=== PATIENT | female | born 1970 | race Caucasian/White ===

== ENCOUNTER 2025-05-22 16:01 | Observation (INO) ==
[2025-05-22 17:03] LABS: MEAN PLATELET VOLUME 8.8 fL (7.4-11.0); RED CELL DISTRIBUTION WIDTH 20.3 % (11.6-16.5)
[2025-05-22 17:21] LABS: COR CA(FOR HYPOALB) 9.2 mg/dL (8.5-10.1); COR NA(FOR HYPERGLY) 143 mmol/L (136-145); CREATININE 0.98 mg/dL (0.55-1.02); eGFR NON BLACK RACES > 60 (>60)
--- NOTE | 2025-05-22 17:39 | DR.GENAD ---
HPI Time Seen Time Seen by Provider: 05/22/25 17:38 PCP Primary Care Physician: Daniele Doll (d/c patient last year) HPI Comment HPI Comment: Patient came in with complaint of headache, feeling fatigued for the last couple of weeks. Patient states is getting worse. Patient states she has had about 2 weeks of heavy vaginal bleeding. Patient does not appear to be very compliant with medications or follow-ups. When asked about burning up if she had a fever she said no that when she exerts herself she gets sweaty. Complaint/Symptoms Chief Complaint:: Pt presents to ED via stretcher, able to walk to treatment room independently, pt in no acute distress. Pt reports last night she started having headache, "burning up", weak, "sometimes I don't have an appetite, sometimes I feel like I could eat a small horse", cough, epigastric pain, intermittent nausea. Self Treatment fo Chief Complaint: hasn't taken any OTC meds d/t "I don't trust that stuff" Has been out of her RX for over one year d/t "I can't afford to pay for a taxi to go to the doctor" COVID-19 Coronavirus risk:travel/contact w/high risk person: No Has patient experienced Coronavirus symptoms: No Source History Provided: Patient and EMS Mode of Arrival Mode of Arrival: EMS Timing Onset of Chief Complaint: 05/20/25 PMH PMH Past Medical History: Yes Past Medical History: Anemia, Asthma, COPD, Diabetes, Dyslipidemia, Hypertension, Hypothyroidism and Sleep Apnea Past Medical History Comment: bipolar, PTSD, RLS Past Surgical History: Yes Surgical History: Tonsillectomy Family History History of Family Medical Conditions: Yes Family Medical History: Diabetes Mellitus and Cancer Social History Does patient currently use any type of tobacco product: No Have you used tobacco products in the last 12 months: No Type of Tobacco Use: None Does any household member use tobacco: No Alcohol Use: None Do you use any recreational Drugs:: No Lives With: Spouse Lives Where: Home Travel Risk Coronavirus risk:travel/contact w/high risk person: No Has patient experienced Coronavirus symptoms: No Infectious screening In the last 2 months have you had wt loss of >10#?: NO Have you had fever, night sweats or hemotysis?: No Have you traveled outside the country in the last 6 months?: No Isolation: Standard ROS Review of Systems Constitutional: See HPI, Weakness and Fatigue; negative Fever Eyes: No Symptoms Reported ENTM: No Symptoms Reported Respiratoy: See HPI and Short of Breath (With exertion); negative Wheezing Cardiovascular: See HPI; negative Chest Pain, Edema, Palpitations or Syncope Gastrointestinal/Abdominal: No Symptoms Reported Genitourinary: See HPI and Bleeding (Vaginal); negative Discharge, Dysuria, Frequency or Pain Neurological: No Symptoms Reported and Headache; negative Numbness, Seizure, Tingling, Weakness (No focalized weakness only generalized), Dizziness, Problems Walking or Speech Problem Musculoskeletal: No Symptoms Reported Integumentary: No Symptoms Reported Hematologic/Lymphatic: No Symptoms Reported Endocrine: No Symptoms Reported Psychiatric: No Symptoms Reported All Other Systems: Reviewed and Negative PE Vital Signs Vitals: Vital Signs Temperature 98.3 F Pulse Rate 94 Respiratory Rate 16 Blood Pressure 119/60 O2 Sat by Pulse Oximetry 97 General Limitations: No Limitations General Appearance: Alert and In No Apparent Distress Head Head Exam: Normal Inspection Eyes Eye exam: Normal Appearance ENT ENT Exam: Normal Exam External Ear Exam: Normal External Inspection TM/Canal Exam: Bilateral: Normal Nose Exam: Normal Nose Exam Mouth Exam: Normal Inspection Throat Exam: Normal Inspection Neck Neck Exam: Normal Inspection Chest Chest Inspection: Normal Inspection Respiratory Respiratory Exam: Normal Lung Sounds Bilat Respiratory Exam: Bilateral: Clear to Auscultation Cardiovascular Cardiovascular Exam: Regular Rate and Normal Rhythm Abdominal Exam Abdominal Exam: Normal Inspection, Normal Bowel Sounds and Soft Extremities Extremities Exam: Normal Inspection Back Back Exam: Normal Inspection Neurologic Neurological Exam: Alert and Oriented X3 Psychiatric Psychiatric Exam: Normal Affect and Normal Mood Skin Skin Exam: Warm, Dry, Intact and Normal Color COURSE Treatment Treatment: After being in ER for over an hour patient states she has had chest pain over the last few days but that it happens regularly on and off. Patient states that she has developed numbness and weakness of her left upper extremity. Teleneuro was consulted immediately. CT of the head resulted negative but teleneuro recommended MRI of the brain tomorrow. Patient found to be severely anemic, likely from vaginal bleeding. CT abdomen and pelvis ordered in preparation for consultation with TOBACCO SWEEPER. Consultation Called: 21:22 Consultation Comments: Discussed case with Dr. Smith and he is agreeable to admission requesting consult for TOBACCO SWEEPER. ROR Labs Reviewed Laboratory Results Reviewed?: Yes 05/22/25 16:34 05/22/25 16:34 Laboratory: WBC 5.5 X10^3/uL (3.6-10.0) 05/22/25 16:34 RBC 3.56 X10^6/uL (3.5-5.4) 05/22/25 16:34 Hgb 7.0 g/dL (12.0-16.0) L* 05/22/25 16:34 Hct 23.3 % (36.0-47.0) L 05/22/25 16:34 MCV 65.3 fL (80.0-100.0) L 05/22/25 16:34 MCH 19.5 pg (27.0-34.0) L 05/22/25 16:34 MCHC 29.9 g/dL (33.0-35.0) L 05/22/25 16:34 RDW 20.3 % (11.6-16.5) H 05/22/25 16:34 Plt Count 201 X10^3/uL (150.0-450.0) 05/22/25 16:34 Plt Count Comment Adequate (ADEQUATE) 05/22/25 16:34 MPV 8.8 fL (7.4-11.0) 05/22/25 16:34 Neut % (Auto) 71.4 % (42.0-75.0) 05/22/25 16:34 Lymph % (Auto) 20.1 % (21.0-51.0) L 05/22/25 16:34 [place] % (Auto) 6.0 % (0.0-13.0) 05/22/25 16:34 Eos % (Auto) 1.9 % (0.9-2.9) 05/22/25 16:34 Baso % (Auto) 0.6 % (0.2-1.0) 05/22/25 16:34 Neut # (Auto) 3.9 x10^3/uL (2.2-4.8) 05/22/25 16:34 Lymph # (Auto) 1.1 X10^3/uL (1.3-2.9) L 05/22/25 16:34 [place] # (Auto) 0.3 x10^3/uL (0.3-0.8) 05/22/25 16:34 Eos # (Auto) 0.1 x10^3/uL (0.0-0.2) 05/22/25 16:34 Baso # (Auto) 0.0 X10^3/uL (0.0-0.1) 05/22/25 16:34 Absolute Nucleated RBC 0.2 /100WBC 05/22/25 16:34 Plt Morphology Comment Normal (NORMAL) 05/22/25 16:34 RBC Morphology Abnormal (NORMAL) A 05/22/25 16:34 Hypochromasia 3+ A 05/22/25 16:34 Anisocytosis 1+ A 05/22/25 16:34 Microcytosis 1+ A 05/22/25 16:34 PT 13.5 SECONDS (11.8-14.3) 05/22/25 16:34 INR Target Range - 05/22/25 16:34 INR 1.02 (0.8-1.3) 05/22/25 16:34 APTT 22.3 SECONDS (22.9-36.5) L 05/22/25 16:34 PTT Comment - 05/22/25 16:34 Fibrinogen 423 mg/dL (239-489) 05/22/25 16:34 Sodium 140 mmol/L (136-145) 05/22/25 16:34 Corrected Sodium 143 mmol/L (136-145) 05/22/25 16:34 Potassium 3.8 mmol/L (3.5-5.1) 05/22/25 16:34 Chloride 104 mmol/L (98-107) 05/22/25 16:34 Carbon Dioxide 32.5 mmol/L (21-32) H 05/22/25 16:34 BUN 11 mg/dL (7-18) 05/22/25 16:34 Creatinine 0.98 mg/dL (0.55-1.02) 05/22/25 16:34 Est GFR (MDRD) Af Amer > 60 (>60) 05/22/25 16:34 Est GFR (MDRD) Non-Af > 60 (>60) 05/22/25 16:34 Glucose 219 mg/dL (65-99) H 05/22/25 16:34 POC Glucose (mg/dL) 159 mg/dL (65-99) H 05/22/25 18:15 Calcium 8.4 mg/dL (8.5-10.1) L 05/22/25 16:34 Corrected Calcium 9.2 mg/dL (8.5-10.1) 05/22/25 16:34 Magnesium 2.0 mg/dL (2.0-2.9) 05/22/25 16:34 Total Bilirubin 0.40 mg/dL (0.2-1.0) 05/22/25 16:34 AST 17 Units/L (15-37) 05/22/25 16:34 ALT 15 Units/L (12-78) 05/22/25 16:34 Alkaline Phosphatase 107 Units/L (46-116) 05/22/25 16:34 Creatine Kinase 35 Units/L (26-192) 05/22/25 16:34 Troponin I High Sens 6.5 ng/L (4.0-60.0) 05/22/25 19:43 Total Protein 7.8 g/dL (6.4-8.2) 05/22/25 16:34 Albumin 3.0 g/dL (3.4-5.0) L 05/22/25 16:34 Globulin 4.8 g/dL (2.5-4.5) H 05/22/25 16:34 Albumin/Globulin Ratio 0.6 Ratio (1.1-2.1) L 05/22/25 16:34 Triglycerides 148 mg/dL (0-150) 05/22/25 16:34 Cholesterol 136 mg/dL (0-200) 05/22/25 16:34 LDL Cholesterol, Calc 78 mg/dL (0-100) 05/22/25 16:34 HDL Cholesterol 28 mg/dL (40-60) L 05/22/25 16:34 Cholesterol/HDL Ratio 4.9 (0.0-5.0) 05/22/25 16:34 Blood Type B POSITIVE 05/22/25 18:27 Antibody Screen Negative 05/22/25 18:27 Other Results Comments: Name: NURYS SCHULTZ : 1970 Sex: F Location: ER Order Number(s): [id number] Procedure(s):BRAIN CT W/O CON Ordering Physician: Jorge A Ivan Primary Care: Nadeen Doll Service Date: 05/22/25 Service Time: 175 EXAM: CT HEAD WITHOUT IV CONTRAST HISTORY: Headaches COMPARISON: None. TECHNIQUE: Axial images were acquired of the head without IV contrast. Coronal and sagittal images were provided. All images were reviewed in a variety of windows and levels. LIMITATIONS: Please note that CT has low sensitivity and accuracy for identifying acute infarction. In addition, there are portions of the brain that are affected by beam hardening artifact which further greatly limits identification of an acute infarct. RADIATION REDUCTION TECHNIQUE: Automated exposure control, Adjustment of the mA and/or kV according to patient size, or iterative reconstruction techniques were used. FINDINGS: There is no evidence of an acute intracranial bleed. There is no evidence of a mass or midline shift. There is no evidence of an extra-axial fluid collection. The easton-white matter differentiation is within normal limits. The visualized bones are unremarkable. The visualized sinuses are clear. The mastoid air cells are well-aerated. IMPRESSION: 1. THERE IS NO EVIDENCE OF AN ACUTE INTRACRANIAL BLEED THIS IS AN ELECTRONICALLY VERIFIED FINAL REPORT 05/22/2025 6:47 PM - Electronically signed by Martin Coy MD Opioid Opioid Risk Tool Age (Alan box if 16-45): No History of Preadolescent Sexual Abuse: No Total: 0 Total Score Risk Category: Low Risk Copyright: Ted GOODRICH predicting aberrant behaviors Discharge Plan Diagnosis Discharge Problem: Vaginal bleeding, Anemia, Left arm weakness Discharge Plan Patient Disposition: 09 ADMITTED INPATIENT Condition: Stable Prescriptions: No Action levothyroxine 50 mcg tablet 20 mcg PO DAILY fluticasone propion-salmeterol 250-50 mcg/dose blister with device 1 ea inhalation BID atorvastatin 20 mg tablet 20 mg PO QDAY lisinopril 20 mg tablet 20 mg PO QDAY famotidine 40 mg tablet 40 mg PO QDAY ropinirole 0.25 mg tablet 0.25 mg PO QDAY trazodone 150 mg tablet 150 mg PO QPM albuterol sulfate 90 mcg/actuation HFA aerosol inhaler 90 mcg inhalation Q6H PRN metformin 500 mg tablet extended release 24 hr 500 mg PO QDAY fluconazole 150 mg tablet 150 mg PO Q3D Qty: 2 0RF Rx Instructions: may repeat second dose 72 hrs after first dose if symptoms persist Health Concerns: Post Hospitalization: new medications and changes needed to prevent readmission or further decline. Pt educated and given instructions on all concerns. Plan of Treatment: Continue with present treatment and follow up plan. Pt is to keep follow up appointment as instructed and take medications as ordered. Orders to Discharge Patient Discharge Orders: Transfer (Routine); Ordered 05/22/25 Ordered By: Jorge A Ivan Follow ups/Referrals Follow ups/Referrals: Nadeen Doll [Primary Care Provider, Emergency Department] - 3 days Instructions Stand Alone Forms: Find Help Web Site, Post Hospital Follow Up Care Print Language: JORDANIAN
[2025-05-22 17:50] LABS: PLATELET MORPHOLOGY COMMENT NORMAL (NORMAL)
--- NOTE | 2025-05-22 17:59 | EKG ---
Test Reason : chest pain Blood Pressure : */* mmHG Vent. Rate : 96 BPM Atrial Rate : 96 BPM P-R Int : 152 ms QRS Dur : 104 ms QT Int : 380 ms P-R-T Axes : 73 36 35 degrees QTc Int : 480 ms Sinus rhythm with premature supraventricular complexes Low voltage QRS Cannot rule out Anterior infarct (cited on or before 21-AUG-2024) Abnormal ECG When compared with ECG of 21-AUG-2024 23:58, premature supraventricular complexes are now present Confirmed by James Barrios MD ([id number]) on 05/23/2025 4:59:26 AM Referred By: Confirmed By: James Barrios MD
[2025-05-22] MEDS: NS 1,000 ML IV 1,000 ML IV SCH (18:07)
[2025-05-22 18:19] LABS: INR 1.02 (0.8-1.3)
[2025-05-22 18:21] LABS: CHOL/HDL RATIO 4.9 (0.0-5.0)
--- NOTE | 2025-05-22 18:50 | CT ---
EXAM: CT HEAD WITHOUT IV CONTRAST HISTORY: Headaches COMPARISON: None. TECHNIQUE: Axial images were acquired of the head without IV contrast. Coronal and sagittal images were provided. All images were reviewed in a variety of windows and levels. LIMITATIONS: Please note that CT has low sensitivity and accuracy for identifying acute infarction. In addition, there are portions of the brain that are affected by beam hardening artifact which further greatly limits identification of an acute infarct. RADIATION REDUCTION TECHNIQUE: Automated exposure control, Adjustment of the mA and/or kV according to patient size, or iterative reconstruction techniques were used. FINDINGS: There is no evidence of an acute intracranial bleed. There is no evidence of a mass or midline shift. There is no evidence of an extra-axial fluid collection. The easton-white matter differentiation is within normal limits. The visualized bones are unremarkable. The visualized sinuses are clear. The mastoid air cells are well-aerated. IMPRESSION: 1. THERE IS NO EVIDENCE OF AN ACUTE INTRACRANIAL BLEED THIS IS AN ELECTRONICALLY VERIFIED FINAL REPORT 05/22/2025 6:47 PM - Electronically signed by Martin Coy MD
--- NOTE | 2025-05-22 18:58 | TELESTROKE ---
[facility] Consult Date of Consult Date of Exam: 05/22/25 Time of Arrival to the ED: 16:02 Allergies Allergies Allergy/AdvReac Type Severity Reaction Status Date / Time cat dander Allergy Verified 05/22/25 16:02 cinnamon Allergy Verified 05/22/25 16:02 sary Allergy Verified 05/22/25 16:02 Iodinated Contrast Media Allergy Verified 05/22/25 16:05 (IVP DYE) mold Allergy Verified 05/22/25 16:02 Vital Signs Vital Signs: Temp Pulse Resp BP Pulse Ox O2 Del Method 05/22/25 16:02 98.3 F 94 H 16 119/60 97 Room Air History of Present Illness History of Present Illness: [facility] Patient Name:Indiana Bazan Date of :1970 Identification Number: Date of Service:05/22/2025 17:59:02 Diagnosis:R20.2 - Paresthesia of skin Impression: The patient is a 55-year-old woman presenting with global weakness, shakiness flushing and bilateral hand tingling. These are relatively nonfocal complaints and do wonder if her significant anemia is playing a role. Stroke seems much less likely. Recommend routine MRI brain w/o, if stroke seen can pursue remainder of cva workup. Hold blood thinners given anemia. Our recommendations are outlined below. Recommendations: Stroke/Telemetry Floor Neuro Checks (Q4) Bedside Swallow Eval DVT Prophylaxis IV Fluids, Normal Saline Head of Bed 30 Degrees Euglycemia and Avoid Hyperthermia (PRN Acetaminophen) Sign Out: Discussed with Emergency Department Provider Advanced Imaging: Advanced Imaging Deferred because: Stroke not suspected with clinical presentation and exam Metrics: Last Known Well: 05/21/2025 22:00:00 Dispatch Time: 05/22/2025 17:59:02 Arrival Time: 05/22/2025 16:02:00 Initial Response Time: 05/22/2025 17:59:02Symptoms: weakness all over bilateral hand tingling headache. Initial patient interaction: 05/22/2025 18:13:13 NIHSS Assessment Completed: 05/22/2025 18:23:00Patient is not a candidate for Thrombolytic. Thrombolytic Medical Decision: 05/22/2025 18:23:00Patient was not deemed candidate for Thrombolytic because of following reasons: LKW outside 4.[address] Head: I personally reviewed all the CT images that were available to me and it showed: no acute changes Primary Provider Notified of Diagnostic Impression and Management Plan on: 05/22/2025 18:57:21 History of Present Illness:Patient is a 55 year old Female. Patient was brought by EMS for symptoms of weakness all over bilateral hand tingling headache. The patient is a 55-year-old woman with a history of morbid obesity, bipolar, restless leg syndrome, PTSD, hypertension, hyperlipidemia, diabetes. She does not take any blood thinners. She states that yesterday evening she developed global weakness and a headache and some shakiness. Then this morning she did not feel any better and felt both hands were tingling left greater then right. Of note, she is very anemic with hemoglobin of 7. She also had anemia back in November and it sounds like suspected source was heavy menses excessive uterine bleeding. She had a colonoscopy shortly before November. Past Medical History: Hypertension Diabetes Mellitus Hyperlipidemia Other PMH: Low thyroid, Bipolar, RLS, PTSD Medications: No Anticoagulant use No Antiplatelet use Reviewed EMR for current medications Allergies: Reviewed Social History: Drug Use: No Family History: There is no family history of premature cerebrovascular disease pertinent to this consultation ROS : 14 Points Review of Systems was performed and was negative except mentioned in HPI. Past Surgical History: There Is No Surgical History Contributory To Todays Visit Examination: BP(119/60),Pulse(94), 1A: Level of Consciousness - Alert; keenly responsive+ 0 1B: Ask Month and Age - Both Questions Right+ 0 1C: Blink Eyes & Squeeze Hands - Performs Both Tasks+ 0 2: Test Horizontal Extraocular Movements - Normal+ 0 3: Test Visual Yu - No Visual Loss+ 0 4: Test Facial Palsy (Use Grimace if Obtunded) - Normal symmetry+ 0 5A: Test Left Arm Motor Drift - No Drift for 10 Seconds+ 0 5B: Test Right Arm Motor Drift - No Drift for 10 Seconds+ 0 6A: Test Left Leg Motor Drift - No Drift for 5 Seconds+ 0 6B: Test Right Leg Motor Drift - No Drift for 5 Seconds+ 0 7: Test Limb Ataxia (FNF/Heel-Flores) - No Ataxia+ 0 8: Test Sensation - Mild-Moderate Loss: Less Sharp/More Dull+ 1 9: Test Language/Aphasia - Normal; No aphasia+ 0 10: Test Dysarthria - Normal+ 0 11: Test Extinction/Inattention - No abnormality+ 0 NIHSS Score:1 NIHSS Free Text :more sensation left leg and Pre-Morbid Modified Gonzales Scale:1 Points = No significant disability despite symptoms; able to carry out all usual duties and activities Spoke with :ED MD This consult was conducted in real time using interactive audio and video technology. Patient was informed of the technology being used for this visit and agreed to proceed. Patient located in hospital and provider located at home/office setting. Patient is being evaluated for possible acute neurologic impairment and high probability of imminent or life-threatening deterioration. I spent total of 45 minutes providing care to this patient, including time for face to face visit via telemedicine, review of medical records, imaging studies and discussion of findings with providers, the patient and/or family. Dr Bethany Castaneda [facility] For Inpatient follow-up with [facility] physician please call [facility] at . As we are not an outpatient service for any post hospital discharge needs please contact the hospital for assistance. If you have any questions for the [facility] physicians or need to reconsult for clinical or diagnostic changes please contact us via [facility] at . Medical Decision Making 05/22/25 16:34 05/22/25 16:34 Labs: Laboratory Results - last 24 hr 05/22/25 05/22/25 05/22/25 16:34 18:15 18:27 WBC 5.5 RBC 3.56 Hgb 7.0 L* Hct 23.3 L MCV 65.3 L MCH 19.5 L MCHC 29.9 L RDW 20.3 H Plt Count 201 Plt Count Comment Adequate MPV 8.8 Neut % (Auto) 71.4 Lymph % (Auto) 20.1 L [place] % (Auto) 6.0 Eos % (Auto) 1.9 Baso % (Auto) 0.6 Neut # (Auto) 3.9 Lymph # (Auto) 1.1 L [place] # (Auto) 0.3 Eos # (Auto) 0.1 Baso # (Auto) 0.0 Absolute Nucleated RBC 0.2 Plt Morphology Comment Normal RBC Morphology Abnormal A Hypochromasia 3+ A Anisocytosis 1+ A Microcytosis 1+ A PT 13.5 INR Target Range - INR 1.02 APTT 22.3 L PTT Comment - Fibrinogen 423 Sodium 140 Corrected Sodium 143 Potassium 3.8 Chloride 104 Carbon Dioxide 32.5 H BUN 11 Creatinine 0.98 Est GFR (MDRD) Af Amer > 60 Est GFR (MDRD) Non-Af > 60 Glucose 219 H POC Glucose (mg/dL) 159 H Calcium 8.4 L Corrected Calcium 9.2 Magnesium 2.0 Total Bilirubin 0.40 AST 17 ALT 15 Alkaline Phosphatase 107 Creatine Kinase 35 Troponin I High Sens 5.5 Total Protein 7.8 Albumin 3.0 L Globulin 4.8 H Albumin/Globulin Ratio 0.6 L Triglycerides 148 Cholesterol 136 LDL Cholesterol, Calc 78 HDL Cholesterol 28 L Cholesterol/HDL Ratio 4.9 Blood Type B POSITIVE B POSITIVE
[2025-05-22] MEDS ORDERED: NS 500 ML IV 500 ML IV ONE ×2 (20:32→22:54)
[2025-05-22 21:24] LABS: BLOOD/HEMOGLOBIN,URINE 5+ (NEGATIVE); LEUKOCYTE ESTERASE ,URINE 1+ (NEGATIVE); NITRITES,URINE NEGATIVE (NEGATIVE)
[2025-05-22 21:29] LABS: APPEARANCE,URINE HAZY (CLEAR)
[2025-05-22 21:41] LABS: SQUAMOUS EPITHELIAL CELL,UR MANY /HPF (NEGATIVE)
[2025-05-22] MEDS: ROCEPHIN VIAL 1 GRAM 1 G in NS 100 ML IV 100 ML IV SCH (21:49)
[2025-05-22] MEDS ORDERED: PROVENTIL NEB TX 0.083% 2.5MG/ 3ML NEB PRN (22:44)
[2025-05-22] MEDS ORDERED: ZOFRAN INJ 4 MG VIAL IVP PRN (22:54)
[2025-05-22] MEDS ORDERED: ULTRAM PO PRN (22:54)
[2025-05-22] MEDS ORDERED: NORCO 5/325 MG TAB PO PRN (22:54)
[2025-05-22] MEDS ORDERED: NovoLIN R (or HumuLIN R) SUBCUT PRN (22:54)
[2025-05-22] MEDS ORDERED: VENTOLIN or PROAIR HFA IN PRN (22:54)
[2025-05-22] MEDS ORDERED: CONSULT PHARMACY - POTASSIUM & MAGNESIUM XX SCH (22:54)
[2025-05-22] MEDS ORDERED: K-RIDER 10 MEQ/100 ML WATER 10 MEQ/100 ML BAG IV SCH (23:30)
--- NOTE | 2025-05-22 23:43 | CT ---
EXAM: CT ABDOMEN AND PELVIS WITHOUT CONTRAST HISTORY: LOW HGB, HEMATURIA ; ANEMIA, ASTHMA, COPD, DM. HTN, SLEEP APNEA COMPARISON: None TECHNIQUE: Axial images were obtained of the abdomen and pelvis without IV contrast. Sagittal and coronal reformatted images were provided. All images were reviewed in a variety of windows and levels. RADIATION REDUCTION TECHNIQUE: Automated exposure control, adjustment of the mA or kV according to patient size, or iterative reconstruction techniques were used. FINDINGS: Please note that lack of IV contrast does limit evaluation of the soft tissues and vascular detail. The visualized lower lung zones are clear. The heart size is within normal limits. There is no evidence of a pericardial effusion. The liver, pancreas, adrenal glands, and kidneys are grossly unremarkable. The gallbladder is grossly unremarkable. The spleen is enlarged measuring 14.7 cm in length. There is no evidence of stones or signs of obstructive uropathy. The stomach, small bowel, and colon are grossly unremarkable. There are no inflammatory changes in the right lower quadrant to suggest secondary signs of acute appendicitis. Normal appendix right lower quadrant. There is no evidence of retroperitoneal or mesenteric lymphadenopathy. The uterus is present. The visualized bones demonstrate degenerative changes. There are no concerning lytic or blastic lesions identified. IMPRESSION: Mild splenomegaly. No acute abdominal or pelvic pathology THIS IS AN ELECTRONICALLY VERIFIED FINAL REPORT 05/22/2025 11:40 PM - Electronically signed by Rohit Melissa MD
[2025-05-23] MEDS ORDERED: VISTARIL PO PRN (00:04)
[2025-05-23] MEDS: TYLENOL 325 MG TAB PO PRN (00:21)
[2025-05-23] MEDS: BENADRYL INJ 50 MG VIAL IVP PRN (00:23)
[2025-05-23 03:52] VITALS: BMI 54.3
[2025-05-23 06:03] LABS: MEAN PLATELET VOLUME 8.9 fL (7.4-11.0); RED CELL DISTRIBUTION WIDTH 20.6 % (11.6-16.5)
[2025-05-23 06:19] LABS: PLATELET MORPHOLOGY COMMENT NORMAL (NORMAL)
[2025-05-23 06:25] LABS: COR CA(FOR HYPOALB) 9.0 mg/dL (8.5-10.1); COR NA(FOR HYPERGLY) 143 mmol/L (136-145); CREATININE 0.92 mg/dL (0.55-1.02); eGFR NON BLACK RACES > 60 (>60)
--- NOTE | 2025-05-23 06:36 | RAD ---
EXAM: Portable chest HISTORY: Total body muscle cramps COMPARISON: 08/21/2024 FINDINGS: Heart size is normal. Dee are normal. Lung garcia are clear. No pleural effusion or pneumothorax identified. Bony thorax is unremarkable. IMPRESSION: No significant abnormality identified THIS IS AN ELECTRONICALLY VERIFIED FINAL REPORT 05/23/2025 6:32 AM - Electronically signed by Manohar Her MD
[2025-05-23 12:09] VITALS: BP 127/65; PULSE 81; RESP 21; TEMP 97.4; O2SAT 97
--- NOTE | 2025-05-23 14:22 | MRI ---
EXAM: BRAIN W/O CON HISTORY: WEAKNESS IN LEFT UPPER EXTREMITY ; COMPARISON: None. TECHNIQUE: Multiplaner, multisequence MRI of the head is performed without IV contrast. FINDINGS: No evidence of restricted diffusion to indicate a recent infarction or acute demyelinating event. No suprasellar lesions. Normal signal of the corpus callosum. Cerebellar tonsils are normal in position. Major flow voids of the anterior and posterior circulation are adequately maintained. Paranasal sinuses and mastoid air cells are predominantly clear. IAC landmarks are symmetric. Cortical brain volume is normal. Ventricular size is normal. 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 There are mild senescent white matter signal changes consisting of patchy subcortical white matter T2 prolongation, and circumferential periventricular white matter T2 prolongation. No susceptibility artifact or hemosiderin deposition is identified. IMPRESSION: No acute intracranial abnormalities Mild, nonspecific senescent white matter signal changes of the supratentorial brain, most often affiliated with microangiopathic degeneration in this age group. Clinical correlation needed, along with routine follow-up. THIS IS AN ELECTRONICALLY VERIFIED FINAL REPORT 05/23/2025 2:19 PM - Electronically signed by Baldemar Pedersen MD
--- NOTE | 2025-05-23 14:26 | DR.SSS ---
SHORT STAY SUMMARY Admission Date Date of Admission: 05/22/25 Discharge Date Discharge Date: 05/23/25 Admission Diagnoses Admission Diagnoses: Acute blood loss anemia due to disordered vaginal bleeding, monoplegia, tachycardia. Discharge Diagnoses Discharge Diagnoses: Acute blood loss anemia causing tachycardia. Disordered uterine bleeding. Chief Complaint Chief Complaint: Weakness. History of Present Illness History of Present Illness: Patient presented to the ER from home due to worsening weakness. Has been bleeding heavily for the last week. Was initially seen by LATIN AMERICAN STUDIES DIRECTOR earlier this year for DU B. She has had intermittent spotting since then. During her time in the ER, commented that her right arm was weak and tingling. Teleneuro consult was obtained along with imaging. They recommended admission for MRI. ROS: 12 point ROS negative septa as noted above. PE: Morbidly obese female in no acute distress. Resting calmly bed. Head NCAT, EOMI, hearing intact conversation. Heart regular rate and rhythm. Lungs are diminished but clear. Belly is soft and nontender with bowel sounds present. No swelling of her extremities. But able to move them all well. CN II through XII are grossly normal. Finger-nose testing normal. Past Medical History Past Medical History: Anemia, Asthma, COPD, Diabetes, Dyslipidemia, Hypertension, Hypothyroidism and Sleep Apnea Past Surgical History Surgical History: Tonsillectomy Allergies Allergies Allergy/AdvReac Type Severity Reaction Status Date / Time cat dander Allergy Verified 05/22/25 16:02 cinnamon Allergy Verified 05/22/25 16:02 sary Allergy Verified 05/22/25 16:02 Iodinated Contrast Media Allergy Verified 05/22/25 16:05 (IVP DYE) mold Allergy Verified 05/22/25 16:02 Medications Home Medications: cat dander Allergy (Verified 05/22/25 16:02) cinnamon Allergy (Verified 05/22/25 16:02) sary Allergy (Verified 05/22/25 16:02) Iodinated Contrast Media (IVP DYE) Allergy (Verified 05/22/25 16:05) mold Allergy (Verified 05/22/25 16:02) Family History Family Medical History: Diabetes Mellitus, Cancer, Heart Failure and Hypert ension Social History Does patient currently use any type of tobacco product: No Have you used tobacco products in the last 12 months: No Type of Tobacco Use: None Does any household member use tobacco: No Alcohol Use: None Drug Use: None Physical Exam Vital Signs: Last Vital Signs Temp 97.7 F 05/23/25 04:00 Pulse 80 05/23/25 04:00 Resp 19 05/23/25 04:00 BP 113/55 05/23/25 04:00 Pulse Ox 95 05/23/25 04:00 O2 Del Method Room Air 05/23/25 04:00 O2 Flow Rate 2 05/22/25 22:37 FiO2 28 05/22/25 22:37 Labs Labs: Laboratory Last Values WBC 5.5 X10^3/uL (3.6-10.0) 05/23/25 05:50 RBC 4.27 X10^6/uL (3.5-5.4) 05/23/25 05:50 Hgb 8.8 g/dL (12.0-16.0) L 05/23/25 05:50 Hct 28.5 % (36.0-47.0) L 05/23/25 05:50 MCV 66.7 fL (80.0-100.0) L 05/23/25 05:50 MCH 20.6 pg (27.0-34.0) L 05/23/25 05:50 MCHC 30.8 g/dL (33.0-35.0) L 05/23/25 05:50 RDW 20.6 % (11.6-16.5) H 05/23/25 05:50 Plt Count 197 X10^3/uL (150.0-450.0) 05/23/25 05:50 Plt Count Comment Adequate (ADEQUATE) 05/23/25 05:50 MPV 8.9 fL (7.4-11.0) 05/23/25 05:50 Neut % (Auto) 63.8 % (42.0-75.0) 05/23/25 05:50 Lymph % (Auto) 25.8 % (21.0-51.0) 05/23/25 05:50 [place] % (Auto) 6.4 % (0.0-13.0) 05/23/25 05:50 Eos % (Auto) 3.4 % (0.9-2.9) H 05/23/25 05:50 Baso % (Auto) 0.6 % (0.2-1.0) 05/23/25 05:50 Neut # (Auto) 3.5 x10^3/uL (2.2-4.8) 05/23/25 05:50 Lymph # (Auto) 1.4 X10^3/uL (1.3-2.9) 05/23/25 05:50 [place] # (Auto) 0.4 x10^3/uL (0.3-0.8) 05/23/25 05:50 Eos # (Auto) 0.2 x10^3/uL (0.0-0.2) 05/23/25 05:50 Baso # (Auto) 0.0 X10^3/uL (0.0-0.1) 05/23/25 05:50 Absolute Nucleated RBC 0.5 /100WBC 05/23/25 05:50 Plt Morphology Comment Normal (NORMAL) 05/23/25 05:50 RBC Morphology Abnormal (NORMAL) A 05/23/25 05:50 Hypochromasia 1+ A 05/23/25 05:50 Anisocytosis 1+ A 05/23/25 05:50 Microcytosis 1+ A 05/23/25 05:50 PT 13.5 SECONDS (11.8-14.3) 05/22/25 16:34 INR Target Range - 05/22/25 16:34 INR 1.02 (0.8-1.3) 05/22/25 16:34 APTT 22.3 SECONDS (22.9-36.5) L 05/22/25 16:34 PTT Comment - 05/22/25 16:34 Fibrinogen 423 mg/dL (239-489) 05/22/25 16:34 Sodium 142 mmol/L (136-145) 05/23/25 05:50 Corrected Sodium 143 mmol/L (136-145) 05/23/25 05:50 Potassium 3.8 mmol/L (3.5-5.1) 05/23/25 05:50 Chloride 106 mmol/L (98-107) 05/23/25 05:50 Carbon Dioxide 30.0 mmol/L (21-32) 05/23/25 05:50 BUN 10 mg/dL (7-18) 05/23/25 05:50 Creatinine 0.92 mg/dL (0.55-1.02) 05/23/25 05:50 Est GFR (MDRD) Af Amer > 60 (>60) 05/23/25 05:50 Est GFR (MDRD) Non-Af > 60 (>60) 05/23/25 05:50 Glucose 122 mg/dL (65-99) H 05/23/25 05:50 POC Glucose (mg/dL) 116 mg/dL (65-99) H 05/23/25 05:21 Calcium 8.3 mg/dL (8.5-10.1) L 05/23/25 05:50 Corrected Calcium 9.0 mg/dL (8.5-10.1) 05/23/25 05:50 Magnesium 2.0 mg/dL (2.0-2.9) 05/22/25 16:34 Total Bilirubin 0.90 mg/dL (0.2-1.0) 05/23/25 05:50 AST 17 Units/L (15-37) 05/23/25 05:50 ALT 15 Units/L (12-78) 05/23/25 05:50 Alkaline Phosphatase 105 Units/L (46-116) 05/23/25 05:50 Creatine Kinase 35 Units/L (26-192) 05/22/25 16:34 Troponin I High Sens 6.5 ng/L (4.0-60.0) 05/22/25 19:43 Total Protein 8.0 g/dL (6.4-8.2) 05/23/25 05:50 Albumin 3.1 g/dL (3.4-5.0) L 05/23/25 05:50 Globulin 4.9 g/dL (2.5-4.5) H 05/23/25 05:50 Albumin/Globulin Ratio 0.6 Ratio (1.1-2.1) L 05/23/25 05:50 Triglycerides 148 mg/dL (0-150) 05/22/25 16:34 Cholesterol 136 mg/dL (0-200) 05/22/25 16:34 LDL Cholesterol, Calc 78 mg/dL (0-100) 05/22/25 16:34 HDL Cholesterol 28 mg/dL (40-60) L 05/22/25 16:34 Cholesterol/HDL Ratio 4.9 (0.0-5.0) 05/22/25 16:34 Specimen Type Clean catch urine 05/22/25 20:56 Urine Color Shr[place]ha (YELLOW) 05/22/25 20:56 Urine Appearance Hazy (CLEAR) 05/22/25 20:56 Urine pH 6.0 (5.0 - 8.0) 05/22/25 20:56 Ur Specific [place] 1.020 (1.000-1.030) 05/22/25 20:56 Urine Protein 2+ (NEGATIVE) 05/22/25 20:56 Urine Glucose (UA) Negative (NEGATIVE) 05/22/25 20:56 Urine Ketones Negative (NEGATIVE) 05/22/25 20:56 Urine Blood 5+ (NEGATIVE) 05/22/25 20:56 Urine Nitrite Negative (NEGATIVE) 05/22/25 20:56 Urine Bilirubin Negative (NEGATIVE) 05/22/25 20:56 Urine Urobilinogen Normal (NORMAL) 05/22/25 20:56 Ur Leukocyte Esterase 1+ (NEGATIVE) 05/22/25 20:56 Urine RBC Tntc /HPF (0-3) A 05/22/25 20:56 Urine WBC 5-10 /HPF (0-5) A 05/22/25 20:56 Ur Squamous Epith Cells Many /HPF (NEGATIVE) 05/22/25 20:56 Urine Bacteria Negative /HPF (NEGATIVE) 05/22/25 20:56 Ur Culture Indicated? No/not indicated 05/22/25 20:56 Blood Type B POSITIVE 05/22/25 18:27 Antibody Screen Negative 05/22/25 18:27 Crossmatch See Detail 05/22/25 18:27 Assessment/Plan (1) Left arm weakness: (2) Anemia: (3) Diabetes mellitus: (4) Vaginal bleeding: (5) Morbid obesity: Hospital Course Hospital Course: Patient was admitted and transfused PRBCs. LAT[employer] STUDIES DIRECTOR consulted and plans on outpatient definitive treatment. She was given Provera to go home with to use if she continue to have bleeding. Monoplegia resolved overnight. MRI was obtained with report still pending. Neuroexam was benign. After discussion with patient, she agrees to follow-up with [employer] STUDIES DIRECTOR and wants to be discharged home. Will continue current medications with addition of Provera as needed for the next week. Tingling was thought to be secondary to tachycardia, anemia, and anxiety over health. She needs to have follow-up with a new PCP locally. Discharge Medications Discharge Medications: Prescriptions: Discharge Plan Discharge Plan Patient Disposition: 01 HOME, SELF-CARE Condition: Stable Health Concerns: Post Hospitalization: new medications and changes needed to prevent readmission or further decline. Pt educated and given instructions on all concerns. Care Plan Goals: Problem: Fluid Volume Deficit Goal: Maintain/Improved Adequate hydration. Instructions: Follow provided instructions. Follow up with primary physician as directed. Contact primary care physician or report to the closest Emergency Room if condition worsens. Plan of Treatment: Continue with present treatment and follow up plan. Pt is to keep follow up appointment as instructed and take medications as ordered. Prescriptions: New medroxyprogesterone [Provera] 10 mg Tablet 10 mg PO BID Qty: 14 0RF Continued levothyroxine 50 mcg tablet 20 mcg PO DAILY fluticasone propion-salmeterol 250-50 mcg/dose blister with device 1 ea inhalation BID atorvastatin 20 mg tablet 20 mg PO QDAY lisinopril 20 mg tablet 20 mg PO QDAY famotidine 40 mg tablet 40 mg PO QDAY ropinirole 0.25 mg tablet 0.25 mg PO QDAY trazodone 150 mg tablet 150 mg PO QPM albuterol sulfate 90 mcg/actuation HFA aerosol inhaler 90 mcg inhalation Q6H PRN metformin 500 mg tablet extended release 24 hr 500 mg PO QDAY fluconazole 150 mg tablet 150 mg PO Q3D Qty: 2 0RF Rx Instructions: may repeat second dose 72 hrs after first dose if symptoms persist Orders to Discharge Patient Discharge Orders: Discharge (Routine); Ordered 05/23/25 Ordered By: Kyle Smith Follow ups/Referrals Follow ups/Referrals: JASVIR YOST [STAFF PHYSICIAN, [facility]Gynecology] - 1 WEEK Referral Note: Call office and schedule a follow up Nadeen Doll [Primary Care Provider, Emergency Department] - 1 WEEK Referral Note: Call office and schedule follow up for next week. Instructions Instructions: Anemia, Weakness: What to Know, [id number], Abnormal Uterine Bleeding, [id number] Stand Alone Forms: Find Help Web Site, Post Hospital Follow Up Care Print Language: SAMI
[2025-05-23] MEDS ORDERED: SNACK - Diabetic Appropriate PO SCH (20:00)
== END 2025-05-23 14:25 | disposition home or self-care (01) ==
LOC: ER 16:01 → MED/SURG 16:01
PROVIDERS: ADMIT Family Medicine; ATTEND Family Medicine
DX: F43.10 Post-traumatic stress disorder, unspecified; D50.0 Iron deficiency anemia secondary to blood loss (chronic); I10 Essential (primary) hypertension; R53.1 Weakness; R00.0 Tachycardia, unspecified; R94.31 Abnormal electrocardiogram [ECG] [EKG]; R07.89 Other chest pain; Z59.86 Financial insecurity; E83.51 Hypocalcemia; F31.89 Other bipolar disorder; R51.9 Headache, unspecified; R06.02 Shortness of breath; N92.5 Other specified irregular menstruation; E11.65 Type 2 diabetes mellitus with hyperglycemia; J44.9 Chronic obstructive pulmonary disease, unspecified; Z68.43 Body mass index [BMI] 50.0-59.9, adult; E66.01 Morbid (severe) obesity due to excess calories; R25.2 Cramp and spasm; Z91.141 Patient's other noncompliance with medication regimen due to financial hardship; R79.1 Abnormal coagulation profile; Z60.8 Other problems related to social environment; R20.2 Paresthesia of skin; G25.81 Restless legs syndrome; Z65.8 Other specified problems related to psychosocial circumstances; E03.8 Other specified hypothyroidism

== ENCOUNTER 2025-07-22 17:23 | Observation (INO) ==
--- NOTE | 2025-07-22 17:34 | DR.VAGB ---
HPI Time Seen Time Seen by Provider: 07/22/25 17:32 Complaint Chief Complaint:: To ER from home via EMS for vaginal bleeding. Patient has a history of excessive vaginal bleeding with mensus. Has been worked up previously for same well-known to ER staff. Patient has failed follow-up with SEGMENTAL PAVING SUPERVISOR, PCP, or outpatient therapy with prescriptions because she says they cannot afford them. Patient has a history of diabetes. Patient does not complain of any pain but has had bleeding per her menstrual cycle which she wanted to be checked for anemia. PMH PMH Past Medical History: Anemia, Asthma, COPD, Diabetes, Dyslipidemia, Hypertension, Hypothyroidism and Sleep Apnea Past Surgical History: Yes Surgical History: Tonsillectomy Family History Family Medical History: Diabetes Mellitus, Cancer, Heart Failure and Hypertension Social History Do you use any recreational Drugs:: No ROS Review of Systems Constitutional: No Symptoms Reported Eyes: No Symptoms Reported ENTM: No Symptoms Reported Respiratoy: No Symptoms Reported Cardiovascular: No Symptoms Reported Gastrointestinal/Abdominal: No Symptoms Reported Genitourinary: See HPI and Bleeding Neurological: See HPI and Headache Musculoskeletal: No Symptoms Reported Integumentary: No Symptoms Reported Hematologic/Lymphatic: No Symptoms Reported Endocrine: No Symptoms Reported Psychiatric: No Symptoms Reported All Other Systems: Reviewed and Negative PE Vital Signs Vitals: Vital Signs Temperature 98.2 F Pulse Rate [Standing] 109 Pulse Rate [Sitting] 112 Pulse Rate [Lying] 121 Pulse Rate 123 Pulse Rate 122 Pulse Rate 88 Pulse Rate 89 Pulse Rate 89 Pulse Rate 91 Pulse Rate 92 Pulse Rate 95 Pulse Rate 98 Pulse Rate 100 Pulse Rate 102 Respiratory Rate 20 Blood Pressure [Standing] 107/58 Blood Pressure [Sitting] 124/57 Blood Pressure [Lying] 131/63 Blood Pressure 131/63 Blood Pressure 149/72 O2 Sat by Pulse Oximetry 99 O2 Sat by Pulse Oximetry 100 O2 Sat by Pulse Oximetry 95 O2 Sat by Pulse Oximetry 98 O2 Sat by Pulse Oximetry 96 O2 Sat by Pulse Oximetry 94 O2 Sat by Pulse Oximetry 93 O2 Sat by Pulse Oximetry 96 O2 Sat by Pulse Oximetry 95 O2 Sat by Pulse Oximetry 97 O2 Sat by Pulse Oximetry 97 General Limitations: No Limitations General Appearance: Alert and In No Apparent Distress (Disheveled) Head Head Exam: Normal Inspection Eyes Eye exam: Normal Appearance ENT ENT Exam: Normal Exam Neck Neck Exam: Normal Inspection Chest Chest Inspection: Normal Inspection Respiratory Respiratory Exam: Normal Lung Sounds Bilat Respiratory Exam: Bilateral: Clear to Auscultation Cardiovascular Cardiovascular Exam: Regular Rate and Normal Rhythm Abdominal Exam Abdominal Exam: Normal Inspection, Normal Bowel Sounds and Soft Rectal Rectal Exam: Deferred Genitourinary External Exam: Female: Deferred : Speculum Exam (Female): Deferred : Bimanual Exam (female): Deferred Extremities Extremities Exam: Normal Inspection Back Back Exam: Normal Inspection Neurologic Neurological Exam: Alert and Oriented X3 Skin Skin Exam: Warm, Dry, Intact and Normal Color COURSE Treatment Treatment: Discussed with patient risks benefits options. Discussed possible admission She does express difficulty with primary care and medications due to finances. After detailed discussion patient Consents to admission. [facility] Labs Reviewed 07/22/25 17:50 07/22/25 17:50 Laboratory: WBC 6.4 X10^3/uL (3.6-10.0) 07/22/25 17:50 RBC 4.27 X10^6/uL (3.5-5.4) 07/22/25 17:50 Hgb 7.9 g/dL (12.0-16.0) L 07/22/25 17:50 Hct 26.3 % (36.0-47.0) L 07/22/25 17:50 MCV 61.7 fL (80.0-100.0) L 07/22/25 17:50 MCH 18.5 pg (27.0-34.0) L 07/22/25 17:50 MCHC 29.9 g/dL (33.0-35.0) L 07/22/25 17:50 RDW 19.8 % (11.6-16.5) H 07/22/25 17:50 Plt Count 195 X10^3/uL (150.0-450.0) 07/22/25 17:50 Plt Count Comment Adequate (ADEQUATE) 07/22/25 17:50 MPV 8.6 fL (7.4-11.0) 07/22/25 17:50 Neut % (Auto) 75.1 % (42.0-75.0) H 07/22/25 17:50 Lymph % (Auto) 17.6 % (21.0-51.0) L 07/22/25 17:50 [place] % (Auto) 5.8 % (0.0-13.0) 07/22/25 17:50 Eos % (Auto) 0.6 % (0.9-2.9) L 07/22/25 17:50 Baso % (Auto) 0.9 % (0.2-1.0) 07/22/25 17:50 Neut # (Auto) 4.8 x10^3/uL (2.2-4.8) 07/22/25 17:50 Lymph # (Auto) 1.1 X10^3/uL (1.3-2.9) L 07/22/25 17:50 [place] # (Auto) 0.4 x10^3/uL (0.3-0.8) 07/22/25 17:50 Eos # (Auto) 0.0 x10^3/uL (0.0-0.2) 07/22/25 17:50 Baso # (Auto) 0.1 X10^3/uL (0.0-0.1) 07/22/25 17:50 Absolute Nucleated RBC 0.2 /100WBC 07/22/25 17:50 Plt Morphology Comment Normal (NORMAL) 07/22/25 17:50 RBC Morphology Abnormal (NORMAL) A 07/22/25 17:50 Hypochromasia 3+ A 07/22/25 17:50 Anisocytosis Slight A 07/22/25 17:50 Microcytosis 2+ A 07/22/25 17:50 Sodium 138 mmol/L (136-145) 07/22/25 17:50 Corrected Sodium 140 mmol/L (136-145) 07/22/25 17:50 Potassium 4.0 mmol/L (3.5-5.1) 07/22/25 17:50 Chloride 102 mmol/L (98-107) 07/22/25 17:50 Carbon Dioxide 27.8 mmol/L (21-32) 07/22/25 17:50 BUN 17 mg/dL (7-18) 07/22/25 17:50 Creatinine 0.96 mg/dL (0.55-1.02) 07/22/25 17:50 Est GFR (MDRD) Af Amer > 60 (>60) 07/22/25 17:50 Est GFR (MDRD) Non-Af > 60 (>60) 07/22/25 17:50 Glucose 186 mg/dL (65-99) H 07/22/25 17:50 Calcium 8.5 mg/dL (8.5-10.1) 07/22/25 17:50 Corrected Calcium 9.4 mg/dL (8.5-10.1) 07/22/25 17:50 Total Bilirubin 0.50 mg/dL (0.2-1.0) 07/22/25 17:50 AST 24 Units/L (15-37) 07/22/25 17:50 ALT 22 Units/L (12-78) 07/22/25 17:50 Alkaline Phosphatase 116 Units/L (46-116) 07/22/25 17:50 Total Protein 7.8 g/dL (6.4-8.2) 07/22/25 17:50 Albumin 2.9 g/dL (3.4-5.0) L 07/22/25 17:50 Globulin 4.9 g/dL (2.5-4.5) H 07/22/25 17:50 Albumin/Globulin Ratio 0.6 Ratio (1.1-2.1) L 07/22/25 17:50 Specimen Type Clean catch urine 07/22/25 19:37 Urine Color Brown (YELLOW) 07/22/25 19:37 Urine Appearance Cloudy (CLEAR) 07/22/25 19:37 Urine pH 5.0 (5.0 - 8.0) 07/22/25 19:37 Ur Specific [place] 1.030 (1.000-1.030) 07/22/25 19:37 Urine Protein 2+ (NEGATIVE) 07/22/25 19:37 Urine Glucose (UA) Negative (NEGATIVE) 07/22/25 19:37 Urine Ketones Negative (NEGATIVE) 07/22/25 19:37 Urine Blood 5+ (NEGATIVE) 07/22/25 19:37 Urine Nitrite Negative (NEGATIVE) 07/22/25 19:37 Urine Bilirubin Negative (NEGATIVE) 07/22/25 19:37 Urine Urobilinogen Normal (NORMAL) 07/22/25 19:37 Ur Leukocyte Esterase 1+ (NEGATIVE) 07/22/25 19:37 Urine Test Negative <10 mIU/mL 07/22/25 19:37 Opioid Opioid Risk Tool Age (Alan box if 16-45): No History of Preadolescent Sexual Abuse: No Total: 0 Total Score Risk Category: Low Risk Copyright: Ted GOODRICH predicting aberrant behaviors Discharge Plan Diagnosis Discharge Problem: Vaginal bleeding, Orthostatic hypotension, Anemia Discharge Plan Patient Disposition: 09 ADMITTED INPATIENT Condition: Stable Prescriptions: New nitrofurantoin monohyd/m-cryst [Macrobid] 100 mg capsule 100 mg PO Q12H 7 Days Qty: 14 0RF Rx Instructions: must administer with a meal/food No Action levothyroxine 50 mcg tablet 20 mcg PO DAILY fluticasone propion-salmeterol 250-50 mcg/dose blister with device 1 ea inhalation BID atorvastatin 20 mg tablet 20 mg PO QDAY lisinopril 20 mg tablet 20 mg PO QDAY famotidine 40 mg tablet 40 mg PO QDAY ropinirole 0.25 mg tablet 0.25 mg PO QDAY trazodone 150 mg tablet 150 mg PO QPM albuterol sulfate 90 mcg/actuation HFA aerosol inhaler 90 mcg inhalation Q6H PRN metformin 500 mg tablet extended release 24 hr 500 mg PO QDAY medroxyprogesterone [Provera] 10 mg Tablet 10 mg PO BID Qty: 14 0RF fluconazole 150 mg tablet 150 mg PO Q3D Qty: 2 0RF Rx Instructions: may repeat second dose 72 hrs after first dose if symptoms persist Health Concerns: Post Hospitalization: new medications and changes needed to prevent readmission or further decline. Pt educated and given instructions on all concerns. Plan of Treatment: Continue with present treatment and follow up plan. Pt is to keep follow up appointment as instructed and take medications as ordered. Orders to Discharge Patient Discharge Orders: Discharge (Routine); Ordered 07/22/25 Ordered By: Manohar Saldana Follow ups/Referrals Follow ups/Referrals: [facility],None [Primary Care Provider] - 3 days Instructions Instructions: Urinary Tract Infection, Female Activity Restrictions/Additional Instructions: Observation follow-up primary care follow-up [employer]ER. Return to ER acute symptoms. Take prescribed medications. Return to ER acute symptoms Print Language: GREENLAND[place]
[2025-07-22 17:42] VITALS: BMI 49.2
[2025-07-22 17:58] LABS: MEAN PLATELET VOLUME 8.6 fL (7.4-11.0); RED CELL DISTRIBUTION WIDTH 19.8 % (11.6-16.5)
[2025-07-22 18:09] LABS: COR CA(FOR HYPOALB) 9.4 mg/dL (8.5-10.1); COR NA(FOR HYPERGLY) 140 mmol/L (136-145); CREATININE 0.96 mg/dL (0.55-1.02); eGFR NON BLACK RACES > 60 (>60)
[2025-07-22 18:15] LABS: PLATELET MORPHOLOGY COMMENT NORMAL (NORMAL)
[2025-07-22 19:46] LABS: BLOOD/HEMOGLOBIN,URINE 5+ (NEGATIVE); LEUKOCYTE ESTERASE ,URINE 1+ (NEGATIVE); NITRITES,URINE NEGATIVE (NEGATIVE)
[2025-07-22 19:49] LABS: APPEARANCE,URINE CLOUDY (CLEAR)
[2025-07-22 20:01] LABS: SQUAMOUS EPITHELIAL CELL,UR MODERATE /HPF (NEGATIVE)
[2025-07-22 20:20] LABS: INR 1.04 (0.8-1.3)
[2025-07-22] MEDS ORDERED: ULTRAM PO PRN (21:34)
[2025-07-22] MEDS ORDERED: VENTOLIN or PROAIR HFA IN PRN (21:34)
[2025-07-22] MEDS ORDERED: PROVENTIL NEB TX 0.083% 2.5MG/ 3ML NEB PRN (22:01)
[2025-07-22] MEDS: TYLENOL 325 MG TAB PO PRN (23:17)
[2025-07-23] MEDS: CONSULT PHARMACY - POTASSIUM & MAGNESIUM XX SCH ×2 (00:44→06:02)
[2025-07-23 05:10] LABS: MEAN PLATELET VOLUME 8.8 fL (7.4-11.0); RED CELL DISTRIBUTION WIDTH 19.6 % (11.6-16.5)
[2025-07-23 05:25] LABS: COR CA(FOR HYPOALB) 9.4 mg/dL (8.5-10.1); COR NA(FOR HYPERGLY) 142 mmol/L (136-145); CREATININE 0.97 mg/dL (0.55-1.02); eGFR NON BLACK RACES > 60 (>60)
[2025-07-23 05:37] LABS: PLATELET MORPHOLOGY COMMENT NORMAL (NORMAL)
[2025-07-23] MEDS: K-DUR TAB 20 MEQ PO ONE (08:36)
[2025-07-23] MEDS: GLUCOPHAGE XR 24-HR PO SCH (08:36)
[2025-07-23] MEDS: ZESTRIL TAB 20 MG PO SCH (08:36)
[2025-07-23] MEDS: LIPITOR TAB 20 MG PO SCH (08:37)
[2025-07-23] MEDS: PATIENT'S HOME MEDICATION PO SCH (08:42)
[2025-07-23] MEDS: ZESTRIL TAB 20 MG ONE (08:42)
[2025-07-23 09:01] VITALS: TEMP 98.7
[2025-07-23] MEDS ORDERED: PHARMACY CONSULT XX SCH (10:00)
[2025-07-23] MEDS: INJECTAFER 750 MG in NS 250 ML IV 250 ML IV NR (11:26)
[2025-07-23 12:33] VITALS: BP 128/61; PULSE 74; RESP 20; O2SAT 98
--- NOTE | 2025-07-25 13:07 | DR.SSS ---
SHORT STAY SUMMARY Admission Date Date of Admission: 07/22/25 Discharge Date Discharge Date: 07/23/25 Admission Diagnoses Admission Diagnoses: Symptomatic anemia Generalized weakness Vaginal bleeding Discharge Diagnoses Discharge Diagnoses: Symptomatic anemia Iron deficiency anemia Generalized weakness Noncompliance Chief Complaint Chief Complaint: Generalized weakness, vaginal bleeding History of Present Illness History of Present Illness: Patient is a 55-year-old female with a past medical history of anemia, COPD, hypertension presented with generalized weakness and vaginal bleeding. She has a history of recurrent ER visits for anemia. ER workup included labs which showed hemoglobin 7.9. She did have low iron. All other workup was negative. She was admitted overnight for observation. She has been referred to PCP and [facility] in the past but failed to keep appointments due to financial reasons. She also never picked up her medication from last visit Medroxyprogesterone that was sent to the pharmacy. Past Medical History Past Medical History: Anemia, Asthma, COPD, Diabetes, Dyslipidemia, Hypertension, Hypothyroidism and Sleep Apnea Past Surgical History Surgical History: Tonsillectomy Allergies Allergies Allergy/AdvReac Type Severity Reaction Status Date / Time cat dander Allergy Verified 07/25/25 10:05 cinnamon Allergy Verified 07/25/25 10:05 sary Allergy Verified 07/25/25 10:05 Iodinated Contrast Media Allergy Verified 07/25/25 10:05 (IVP DYE) mold Allergy Verified 07/25/25 10:05 Medications Home Medications: cat dander Allergy (Verified 05/22/25 16:02) cinnamon Allergy (Verified 05/22/25 16:02) sary Allergy (Verified 05/22/25 16:02) Iodinated Contrast Media (IVP DYE) Allergy (Verified 05/22/25 16:05) mold Allergy (Verified 05/22/25 16:02) CONTINUE taking the following medications NK 07/22/25 [History] Family History Family Medical History: Diabetes Mellitus, Cancer, Heart Failure and Hypertension Social History Does patient currently use any type of tobacco product: No Have you used tobacco products in the last 12 months: No Type of Tobacco Use: None Does any household member use tobacco: No Alcohol Use: None Drug Use: None Review of Systems Constitutional: Weakness Eyes: No Symptoms Reported ENT: No Symptoms Reported Respiratory: Shortness of Breath Cardiovascular: No Symptoms Reported Gastrointestinal: No Symptoms Reported Genitourinary: No Symptoms Reported Musculoskeletal: No Symptoms Reported Skin: No Symptoms Reported Neurological: No Symptoms Reported Physical Exam Vital Signs: Last Vital Signs Temp 98.7 F 07/23/25 08:00 Pulse 93 H 07/23/25 08:00 Resp 19 07/23/25 08:00 BP 134/69 07/23/25 08:00 Pulse Ox 100 07/23/25 08:00 O2 Del Method Nasal Cannula 07/23/25 09:55 O2 Flow Rate 2 07/23/25 09:55 FiO2 28 07/23/25 09:55 Oriented: Normal Respiratory: Clear Throughout Cardiovascular: Normal Auscultation: Bowel Sounds: Normal Palpation: Normal Tenderness: Normal Skin: Normal Musculoskeletal: Normal Psychiatric: Normal Mood Description: Calm Affect: Normal Speech Pattern: Clear and Appropriate Labs Labs: Laboratory Last Values WBC 8.8 X10^3/uL (3.6-10.0) 07/23/25 04:05 RBC 4.30 X10^6/uL (3.5-5.4) 07/23/25 04:05 Hgb 8.0 g/dL (12.0-16.0) L 07/23/25 04:05 Hct 26.6 % (36.0-47.0) L 07/23/25 04:05 MCV 61.8 fL (80.0-100.0) L 07/23/25 04:05 MCH 18.6 pg (27.0-34.0) L 07/23/25 04:05 MCHC 30.0 g/dL (33.0-35.0) L 07/23/25 04:05 RDW 19.6 % (11.6-16.5) H 07/23/25 04:05 Plt Count 258 X10^3/uL (150.0-450.0) 07/23/25 04:05 Plt Count Comment Adequate (ADEQUATE) 07/23/25 04:05 MPV 8.8 fL (7.4-11.0) 07/23/25 04:05 Neut % (Auto) 62.4 % (42.0-75.0) 07/23/25 04:05 Lymph % (Auto) 30.6 % (21.0-51.0) 07/23/25 04:05 [place] % (Auto) 5.7 % (0.0-13.0) 07/23/25 04:05 Eos % (Auto) 0.6 % (0.9-2.9) L 07/23/25 04:05 Baso % (Auto) 0.7 % (0.2-1.0) 07/23/25 04:05 Neut # (Auto) 5.5 x10^3/uL (2.2-4.8) H 07/23/25 04:05 Lymph # (Auto) 2.7 X10^3/uL (1.3-2.9) 07/23/25 04:05 [place] # (Auto) 0.5 x10^3/uL (0.3-0.8) 07/23/25 04:05 Eos # (Auto) 0.1 x10^3/uL (0.0-0.2) 07/23/25 04:05 Baso # (Auto) 0.1 X10^3/uL (0.0-0.1) 07/23/25 04:05 Absolute Nucleated RBC 0.2 /100WBC 07/23/25 04:05 Plt Morphology Comment Normal (NORMAL) 07/23/25 04:05 RBC Morphology Abnormal (NORMAL) A 07/23/25 04:05 Hypochromasia 3+ A 07/23/25 04:05 Poikilocytosis Slight A 07/23/25 04:05 Anisocytosis Slight A 07/23/25 04:05 Microcytosis 2+ A 07/23/25 04:05 Ovalocytes Slight A 07/23/25 04:05 PT 13.7 SECONDS (11.8-14.3) 07/22/25 17:50 INR Target Range - 07/22/25 17:50 INR 1.04 (0.8-1.3) 07/22/25 17:50 APTT 25.5 SECONDS (22.9-36.5) 07/22/25 17:50 PTT Comment - 07/22/25 17:50 Sodium 141 mmol/L (136-145) 07/23/25 04:05 Corrected Sodium 142 mmol/L (136-145) 07/23/25 04:05 Potassium 3.8 mmol/L (3.5-5.1) 07/23/25 04:05 Chloride 101 mmol/L (98-107) 07/23/25 04:05 Carbon Dioxide 31.2 mmol/L (21-32) 07/23/25 04:05 BUN 17 mg/dL (7-18) 07/23/25 04:05 Creatinine 0.97 mg/dL (0.55-1.02) 07/23/25 04:05 Est GFR (MDRD) Af Amer > 60 (>60) 07/23/25 04:05 Est GFR (MDRD) Non-Af > 60 (>60) 07/23/25 04:05 Glucose 126 mg/dL (65-99) H 07/23/25 04:05 Calcium 8.7 mg/dL (8.5-10.1) 07/23/25 04:05 Corrected Calcium 9.4 mg/dL (8.5-10.1) 07/23/25 04:05 Magnesium 2.1 mg/dL (2.0-2.9) 07/23/25 04:05 Iron 19 ug/dL (50-175) L 07/23/25 04:05 TIBC 510 ug/dL (250-450) H 07/23/25 04:05 Ferritin 15 ng/mL (8-252) 07/23/25 04:05 Total Bilirubin 0.50 mg/dL (0.2-1.0) 07/23/25 04:05 AST 22 Units/L (15-37) 07/23/25 04:05 ALT 23 Units/L (12-78) 07/23/25 04:05 Alkaline Phosphatase 114 Units/L (46-116) 07/23/25 04:05 Total Protein 8.2 g/dL (6.4-8.2) 07/23/25 04:05 Albumin 3.1 g/dL (3.4-5.0) L 07/23/25 04:05 Globulin 5.1 g/dL (2.5-4.5) H 07/23/25 04:05 Albumin/Globulin Ratio 0.6 Ratio (1.1-2.1) L 07/23/25 04:05 Specimen Type Clean catch urine 07/22/25 19:37 Urine Color Brown (YELLOW) 07/22/25 19:37 Urine Appearance Cloudy (CLEAR) 07/22/25 19:37 Urine pH 5.0 (5.0 - 8.0) 07/22/25 19:37 Ur Specific [place] 1.030 (1.000-1.030) 07/22/25 19:37 Urine Protein 2+ (NEGATIVE) 07/22/25 19:37 Urine Glucose (UA) Negative (NEGATIVE) 07/22/25 19:37 Urine Ketones Negative (NEGATIVE) 07/22/25 19:37 Urine Blood 5+ (NEGATIVE) 07/22/25 19:37 Urine Nitrite Negative (NEGATIVE) 07/22/25 19:37 Urine Bilirubin Negative (NEGATIVE) 07/22/25 19:37 Urine Urobilinogen Normal (NORMAL) 07/22/25 19:37 Ur Leukocyte Esterase 1+ (NEGATIVE) 07/22/25 19:37 Urine RBC Tntc /HPF (0-3) A 07/22/25 19:37 Urine WBC 3-5 /HPF (0-5) 07/22/25 19:37 Ur Squamous Epith Cells Moderate /HPF (NEGATIVE) 07/22/25 19:37 Urine Bacteria 1+ /HPF (NEGATIVE) 07/22/25 19:37 Ur Culture Indicated? No/not indicated 07/22/25 19:37 Urine Test Negative <10 mIU/mL 07/22/25 19:37 Urine Opiates Screen Negative (NEG=<300) 07/22/25 19:37 Urine Methadone Screen Negative (NEG=<300) 07/22/25 19:37 Ur Barbiturates Screen Negative (NEG=<200) 07/22/25 19:37 Ur Phencyclidine Scrn Negative (NEG=<25) 07/22/25 19:37 Ur Amphetamines Screen Negative (NEG=<1000) 07/22/25 19:37 U Benzodiazepines Scrn Negative (NEG=<200) 07/22/25 19:37 Urine Cocaine Screen Negative (NEG=<300) 07/22/25 19:37 U Marijuana (THC) Screen Negative (NEG=<50) 07/22/25 19:37 Hospital Course Hospital Course: Patient was admitted overnight and hemoglobin was monitored. She did have low iron and was transfused iron transfusion. She did not have any heavy menstrual bleeding during her admission. She was stable for discharge. She was told to follow-up with PCP and [facility] as scheduled. Patient verbalized understanding. Discharge Medications Discharge Medications: Home Medication List NK 07/22/25 [History] Prescriptions: Discharge Disposition Discharge Disposition: To home Discharge Plan Discharge Plan Patient Disposition: 01 HOME, SELF-CARE Condition: Stable Health Concerns: Post Hospitalization: new medications and changes needed to prevent readmission or further decline. Pt educated and given instructions on all concerns. Care Plan Goals: Problem: Fluid Volume Deficit Goal: Maintain/Improved Adequate hydration. Instructions: Follow provided instructions. Follow up with primary physician as directed. Contact primary care physician or report to the closest Emergency Room if condition worsens. Plan of Treatment: Continue with present treatment and follow up plan. Pt is to keep follow up appointment as instructed and take medications as ordered. Prescription drug monitoring program results: PDMP reviewed and no concerns identified Prescriptions: No Action medroxyprogesterone 10 mg tablet 10 mg PO BID 7 Days Qty: 14 5RF ferrous gluconate 225 mg (27 mg iron) tablet 225 mg PO BID Qty: 60 5RF Orders to Discharge Patient Discharge Orders: Discharge (Routine); Ordered 07/23/25 Ordered By: Abbie Hollis Follow ups/Referrals Follow ups/Referrals: JASVIR YOST [STAFF PHYSICIAN, [facility]/Gynecology] - 08/06/25 10:45 am Nadeen Doll [CONSULTING PHYSICIAN, Emergency Department] - 1 WEEK Referral Note: Call office and schedule a follow up appointment. Instructions Instructions: Urinary Tract Infection, Female, Anemia, Abnormal Uterine Bleeding, [id number] Activity Restrictions/Additional Instructions: Observation follow-up primary care follow-up [facility]. Return to ER acute symptoms. Take prescribed medications. Stand Alone Forms: Find Help Web Site, Post Hospital Follow Up Care Print Language: CZECH
== END 2025-07-23 14:20 | disposition home or self-care (01) ==
LOC: ER 17:23 → ICU 17:23
PROVIDERS: ADMIT Internal Medicine; ATTEND Internal Medicine
DX: E78.5 Hyperlipidemia, unspecified; E03.8 Other specified hypothyroidism; R06.2 Wheezing; D64.89 Other specified anemias; N93.8 Other specified abnormal uterine and vaginal bleeding; E11.65 Type 2 diabetes mellitus with hyperglycemia; J44.9 Chronic obstructive pulmonary disease, unspecified; Z91.148 Patient's other noncompliance with medication regimen for other reason; N92.0 Excessive and frequent menstruation with regular cycle; R10.84 Generalized abdominal pain; I95.1 Orthostatic hypotension; Z59.86 Financial insecurity; I10 Essential (primary) hypertension